=== PATIENT | male | born 1985 | race Caucasian/White ===

== ENCOUNTER 2019-03-30 14:37 | Emergency (ER) | payer MEDICAID ==
[~2019-03-30] VITALS: Ht 165.1 cm; Wt 90.0 kg
[2019-03-30 14:42] VITALS: Ht 165.1 cm; Wt 90.0 kg
--- NOTE | 2019-03-30 15:14 | ERD ---
ER Documentation Chief Complaint Chief Complaint pt reports bilateral foot pain after meth use HPI 34-year-old male states that he has been wandering around after using methamphetamine and now his feet hurt. Patient denies suicidal or homicidal thoughts. He denies any numbness or tingling. Denies any chest pain or shortness of breath. ROS All systems reviewed and are negative except as per history of present illness. Allergies Allergies: Coded Allergies: Penicillins (Verified Allergy, Unknown, swelling, 03/30/19) Physical Exam Vitals Vital Signs Date Temp Pulse Resp B/P (MAP) Pulse Ox O2 O2 Flow FiO2 Time Delivery Rate 03/30/19 98.1 84 16 137/78 100 14:42 (97) Physical Exam GENERAL: The patient is well developed and appropriate for usual state of health in no apparent distress HEENT: Pupils equal, round, and reactive to light. EOMI. There is no scleral icterus. NECK: C-spine is soft and supple, there is no meningismus. There is no cervical lymphadenopathy. LUNGS: Clear to auscultation bilaterally. There are no rales, wheezes or rhonchi. HEART: Regular rate and rhythm, no murmurs, clicks, rubs or gallops. ABDOMEN: Soft, non-tender, non-distended. There are bowel sounds in all four quadrants. No rebound or guarding. EXTREMITIES: There is no peripheral cyanosis or edema. No focal swelling or erythema. NEURO: The patient moves all four extremities with 5/5 strength. Cranial nerves II - XII are intact. Normal gait. Alert and oriented SKIN: There is no apparent rash or petechiae. There are blisters on his feet with no evidence of infection HEME/LYMPHATIC: There is no evidence of excessive bruising or lymphedema. PSYCHIATRIC: The patient does not appear anxious or depressed. Procedures/MDM Patient was taken to a room, seen and examined Medical decision m[age]-year-old male presents the emergency department after using methamphetamine with what appears to be essentially a trivial complaint. At this time there is no evidence of infection, no evidence of other high-risk concerns. Patient does not appear to be suicidal or homicidal and appears able to negotiate the community and seems appropriate for discharge. Departure Diagnosis: Primary Impression: Drug use Condition: Stable Patient Instructions: Drug Abuse EAMON COOK Mar 30, 2019 15:14
[2019-03-30 18:10] VITALS: BP 118/66; PULSE 72; RESP 20
== END 2019-03-30 18:47 | disposition home or self-care (01) ==
LOC: E/R 14:37
DX: F15.90 Other stimulant use, unspecified, uncomplicated (principal)
CPT/HCPCS: 36415; 80053; 80307; 85025; Z7502; 99283